=== PATIENT | female | born 1975 | race African-American/Black ===

== ENCOUNTER → 2020-05-07 | Day surgery (SDC) | payer OTHER ==
[2020-05-04 13:55] LABS: BASOPHILS # (AUTO) 0.1 (0.0-0.1); BASOPHILS % 0.6 % (0.0-1.0); EOSINOPHILS # (AUTO) 0.1 (0.0-0.4); EOSINOPHILS % 1.4 % (0.0-6.0); HEMATOCRIT 29.1 % (34.2-44.1); HEMOGLOBIN 7.6 g/dL (12.0-16.0); LYMPHOCYTES # (AUTO) 3.2 (1.0-3.2); LYMPHOCYTES % 37.9 % (18.0-39.1); MEAN CORPUSCULAR HEMOGLOBIN 16.6 pg (28-32); MEAN CORPUSCULAR HGB CONC 26.1 g/dL (31-35); MEAN CORPUSCULAR VOLUME 63.5 fL (81-99); MONOCYTES # (AUTO) 0.8 (0.2-0.8); MONOCYTES % 9.4 % (4.4-11.3); NEUTROPHILS # (AUTO) 4.3 (2.1-6.9); NEUTROPHILS % 50.1 % (38.7-80.0); PLATELET COUNT 372 x10e3/uL (140-360); RED BLOOD COUNT 4.58 x10e6/uL (3.6-5.1); RED CELL DISTRIBUTION WIDTH 20.9 % (11.7-14.4)
[~2020-05-07] MED LIST: ACETAMINOPHEN 1000 MG/100 ML IV ONE; ACETAMINOPHEN/CODEINE 300MG - 30MG TAB ONE; DEXAMETHASONE SOD PHOS INJ 4 MG/ML VIAL ONE; ETOMIDATE 2 MG/ML 10 ML INJ IV ONE; GLYCOPYRROLATE INJ 0.2 MG/ML VIAL ONE; IRON159 MG PO; KETOROLAC TROMETHAMINE 30 MG/ML VIAL ONE; LIDOCAINE HCL 2% LOCAL INJ 5 ML SDV VIAL INJ ONE; ONDANSETRON HCL INJ 2MG/ML 2ML 2 MG/ML VIAL ONE; PROPOFOL IV EMULSION 10 MG/ML 20 ML VIAL ONE; SEVOFLURANE INHAL SOLN 250 ML PEN BTL ONE; VITAMIN C60 MG PEG
[2020-05-07 14:50] VITALS: BP 132/61
--- NOTE | 2020-05-26 15:54 | Operative Report ---
DATE OF PROCEDURE: SURGEON: Nancy Bangura MD PREOPERATIVE DIAGNOSIS: Abnormal uterine bleeding. POSTOPERATIVE DIAGNOSIS: Abnormal uterine bleeding. PROCEDURE: Hysteroscopy, D and C, endometrial ablation using Holley. COMPLICATIONS: None. ESTIMATED BLOOD LOSS: Minimal. DESCRIPTION OF PROCEDURE: The patient was taken to the OR, where general anesthesia was placed. She was prepped and draped in a normal sterile fashion, placed in dorsal lithotomy position. After examination under anesthesia, a weighted speculum was placed inside the vagina. Cervix was grasped with single-tooth tenaculum. Cervix was dilated to Hegar's 8. Hysteroscope was introduced and this showed submucous fibroid which was removed using the dense tissue mini TruClear. Hysteroscope was removed and sharp curettings were obtained, sent to pathology and then Holley was placed inside the uterus and power was applied and the endometrial ablation was performed. Holley was removed and hysteroscope was inserted and showed that the endometrium was completely ablated. The patient tolerated the procedure well. Laps, instrument and needle count were correct x2 at the end of procedure. Nancy Bangura MD DD/VESTA /[id number]
== END | disposition home or self-care (01) ==
LOC: OR 10:21
PROVIDERS: ATTEND Obstetrics & Gynecology
DX: D25.0 Submucous leiomyoma of uterus (principal); N93.8 Other specified abnormal uterine and vaginal bleeding; E66.01 Morbid (severe) obesity due to excess calories; D64.9 Anemia, unspecified; Z01.812 Encounter for preprocedural laboratory examination; Z11.59 Encounter for screening for other viral diseases
CPT/HCPCS: 36415; 58561; 58563; 84702; 85025; 88305; J0131; J1100; J1885; J2001; J2405; J2704; U0002